=== PATIENT | male | born 2000 | race Caucasian/White ===

== ENCOUNTER 2018-07-02 15:57 | Emergency (ER) | payer SELFPAY ==
[2018-07-02 16:27] LABS: BASOPHILS % 0.6 (0.0-1.5); EOSINOPHILS % 3.7 % (0.0-6.8); MEAN CORPUSCULAR HEMOGLOBIN 31.1 pg (28.0-34.0); MEAN CORPUSCULAR VOLUME 91.7 fl (80.0-100.0); MONOCYTES % 5.2 % (0.0-11.0); NEUTROPHILS # 5.4 # k/uL (1.4-7.7)
[2018-07-02 16:44] LABS: eGFR (African) > 60; eGFR (Non-African) > 60
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
[2018-07-02 17:44] LABS: APPEARANCE,URINE CLEAR (CLEAR); COLOR,URINE YELLOW (YELLOW)
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
[2018-07-02 17:45] LABS: OCCULT BLOOD,URINE TRACE-INTACT (NEGATIVE); UROBILINOGEN URINE 0.2 Eu (0.2-1.0)
[2018-07-02 17:46] LABS: CANNABINOIDS NEGATIVE ng/mL (< 50); METHYLENEDIOXYMETHAMPHETAMINE NEGATIVE ng/mL (<500)
[2018-07-02 18:10] VITALS: BP 120/63
== END 2018-07-02 17:58 | disposition home or self-care (01) ==
LOC: ED 15:57
DX: S30.1XXA Contusion of abdominal wall, initial encounter (principal); S00.01XA Abrasion of scalp, initial encounter; S80.211A Abrasion, right knee, initial encounter; V89.2XXA Person injured in unspecified motor-vehicle accident, traffic, initial encounter; Y92.9 Unspecified place or not applicable; Y93.9 Activity, unspecified; Y99.9 Unspecified external cause status; S00.531A Contusion of lip, initial encounter
CPT/HCPCS: 70450; 71046; 72125; 74177; 80053; 80377; 81002; 85025; 99285; Q9967; G0481; S1016